=== PATIENT | female | born 1980 | race Caucasian/White ===

== ENCOUNTER 2020-07-03 09:11 | Emergency (ER) | payer OTHER ==
--- OUTSIDE RECORDS SUMMARY | 2020-07-03 09:14 | XMS REPORT | Continuity of Care Document ---
:[address] [facility] t Address [address] [place] [address] Care Team Providers Name Role Phone Unavailable Unavailable Unavailable Payers Payer Name Policy Type Policy Number Effective Date Expiration Date S ource Problems This patient has no known problems. Allergies, Adverse Reactions, Alerts Allergy Allergy Status Severity Reaction(s) Onset Inactive Treating Comm ents Source Name Type Date Date Clinician Penicill DA Active [place] 2018- [facility] ins 12-22 Clear 00:00: Chanel 00 [facility] Sulfa DA Active [place] 2018-0 [facility] (Sulfona 12-22 Clear mide 00:00: Chanel Antibiot 00 [facility] estradio DA Active [place] 2018- [facility] l 12-22 Clear 00:00: Chanel 00 [facility] cephalex DA Active U 2018-0 [facility] in 12-22 Clear 00:00: Chanel 00 [facility] ciproflo DA Active [place] 2018- [facility] xacin - Clear 00:00: Chanel 00 [facility] ciproflo DA Active U 2009-0 [facility] x[facility] [place] Penicill DA Active U 2009-0 [facility] [place] ciproflo DA Active U 2009-0 [facility] xacin [facility] [place] Medications This patient has no known medications. Procedures This patient has no known procedures. Results Test Description Test Time Test Comments Results Result Comments Source AG HEPATITIS B SURFACE 2019-01-01 12:41:00 Test Item Value Reference Range Interpretation Comme nts AG HEPATITIS B SURFACE (test code = HBSAG) NON REACTIVE INDEX NonRe active IS CONSENT FORM SIGNED FOR HIV TESTING? LUIS HEPATITIS [id number] 12:41:00 Test Item Value Reference Range Interpretation Comments AB HEPATITIS C (test code NON REACTIVE INDEX NON REACT. = HCVAB) IS CONSENT FORM SIGNED FOR HIV TESTING? YRAPID PLASMA [id number] 12:41:00 Test Item Value Reference Range Interpretation Comments RAPID PLASMA REAGIN (test code = NON-REACTIVE NON-REACT RPR) IS CONSENT FORM SIGNED FOR HIV TESTING? YAG HEPATITIS B [id number] 12:41:00 Test Item Value Reference Range Interpretation Comments AG HEPATITIS B SURFACE NON REACTIVE INDEX NonReactive (test code = HBSAG) IS CONSENT FORM SIGNED FOR HIV TESTING? LUIS HEPATITIS C [id number] 12:41:00 Test Item Value Reference Range Interpretation Comments AB HEPATITIS C (test code NON REACTIVE INDEX NON REACT. = HCVAB) IS CONSENT FORM SIGNED FOR HIV TESTING? MORIAHB [id number] 12:41:00 Test Item Value Reference Range Interpretation Comments AB TREPONEMA (test code = TEST NOT PERFORMED NONREACTIVE SEE RPR TREPAB) IS CONSENT FORM SIGNED FOR HIV TESTING? YCBC W/AUTO [id number] 14:05:00 Test Item Value Reference Range Interpretation Comments WHITE BLOOD CELL (test code = WBC) 19.9 K/mm3 6.6-12.1 H RED BLOOD CELL (test code = RBC) 4.11 M/mm3 3.45-5.01 N HEMOGLOBIN (test code = HGB) 11.9 g/dL 10.7-13.9 N HEMATOCRIT (test code = HCT) 36.9 % 32.1-42.1 N MEAN CELL VOLUME (test code = MCV) 90 fL 84.1-94.8 N MEAN CELL HGB (test code = MCH) 29.0 pg 27-35 N MEAN CELL HGB CONCETRATION (test 32.2 gm/dL 32.2-34.1 N code = MCHC) RED CELL DISTRIBUTION WIDTH (test 13.9 % 12.4-16.5 N code = RDW) PLATELET COUNT (test code = PLT) 225 K/mm3 133-385 N IMMATURE PLATELET FRACTION (test 0.0 % 0.0-10.8 N code = IPF) MEAN PLATELET VOLUME (test code = 12.3 fl 9.1-12.7 N MPV) NEUTROPHIL % (test code = NT%) 72.8 % 56.5-79.4 N LYMPHOCYTE % (test code = LY%) 19.4 % 14.3-34.3 N MONOCYTE % (test code = MO%) 6.3 % 5.1-10.4 N EOSINOPHIL % (test code = EO%) 0.8 % 0.1-3.0 N BASOPHIL % (test code = BA%) 0.2 % 0.1-1.0 N NEUTROPHIL # (test code = NT#) 14.5 K/mm3 LYMPHOCYTE # (test code = LY#) 3.9 K/mm3 MONOCYTE # (test code = MO#) 1.3 K/mm3 EOSINOPHIL # (test code = EO#) 0.16 K/mm3 BASOPHIL # (test code = BA#) 0.0 K/mm3 RBC MORPHOLOGY REQUIRED (test code NORMAL NORMAL = RBCM) PLATELET MORPHOLOGY REQUIRED (test NORMAL NORMAL code = PLTMR) RAPID PLASMA [id number] 12:15:00 Test Item Value Reference Range Interpretation Comments RAPID PLASMA REAGIN (test code = NON-REACTIVE NON-REACT RPR) IS CONSENT FORM SIGNED FOR HIV TESTING? YAG HEPATITIS B [id number] 12:15:00 Test Item Value Reference Range Interpretation Comments AG HEPATITIS B SURFACE NON REACTIVE INDEX NonReactive (test code = HBSAG) IS CONSENT FORM SIGNED FOR HIV TESTING? YAB HEPATITIS C [id number] 12:15:00 Test Item Value Reference Range Interpretation Comments AB HEPATITIS C (test code NON REACTIVE INDEX NON REACT. = HCVAB) IS CONSENT FORM SIGNED FOR HIV TESTING? YAB [id number] 12:15:00 Test Item Value Reference Range Interpretation Comments AB TREPONEMA (test code = TEST NOT PERFORMED NONREACTIVE SEE RPR TREPAB) IS CONSENT FORM SIGNED FOR HIV TESTING? YAB HIV 1 12:15:00 Test Item Value Reference Range Interpretation Comments AB HIV 1 2 (test code = NONREACTIVE [id number]) IS CONSENT FORM SIGNED FOR HIV TESTING? YRAPID PLASMA [id number] 10:43:00 Test Item Value Reference Range Interpretation Comments RAPID PLASMA REAGIN (test code = NON-REACTIVE NON-REACT RPR) IS CONSENT FORM SIGNED FOR HIV TESTING? KAREN HEPATITIS B [id number] 10:43:00 Test Item Value Reference Range Interpretation Comments AG HEPATITIS B SURFACE NON REACTIVE INDEX NonReactive (test code = HBSAG) IS CONSENT FORM SIGNED FOR HIV TESTING? LUIS HEPATITIS C [id number] 10:43:00 Test Item Value Reference Range Interpretation Comments AB HEPATITIS C (test code NON REACTIVE INDEX NON REACT. = HCVAB) SIGNAL TO CUTOFF (test <0.80 code = CUTOFF) IS CONSENT FORM SIGNED FOR HIV TESTING? MORIAHB [id number] 10:43:00 Test Item Value Reference Range Interpretation Comments AB TREPONEMA (test code = TEST NOT PERFORMED NONREACTIVE SEE RPR TREPAB) IS CONSENT FORM SIGNED FOR HIV TESTING? MORIAHB HIV 1 10:43:00 Test Item Value Reference Range Interpretation Comments AB HIV 1 2 (test code = [id number]) NONREACTIVE IS CONSENT FORM SIGNED FOR HIV TESTING? KAREN HEPATITIS B [id number] 09:55:00 Test Item Value Reference Range Interpretation Comments AG HEPATITIS B SURFACE NON REACTIVE INDEX NonReactive (test code = HBSAG) IS CONSENT FORM SIGNED FOR HIV TESTING? MORIAHB HEPATITIS [id number] 09:55:00 Test Item Value Reference Range Interpretation Comments AB HEPATITIS C (test code NON REACTIVE INDEX NON REACT. = HCVAB) IS CONSENT FORM SIGNED FOR HIV TESTING? MORIAHB HIV 1 09:55:00 Test Item Value Reference Range Interpretation Comments AB HIV 1 2 (test code = [id number]) INDEX NONREACTIVE IS CONSENT FORM SIGNED FOR HIV TESTING? YRAPID PLASMA [id number] 04:46:00 Test Item Value Reference Range Interpretation Comments RAPID PLASMA REAGIN (test code = NON-REACTIVE NON-REACT RPR) IS CONSENT FORM SIGNED FOR HIV TESTING? KAREN HEPATITIS B [id number] 04:46:00 Test Item Value Reference Range Interpretation Comments AG HEPATITIS B SURFACE NON REACTIVE INDEX NonReactive (test code = HBSAG) IS CONSENT FORM SIGNED FOR HIV TESTING? LUIS HEPATITIS C [id number] 04:46:00 Test Item Value Reference Range Interpretation Comments AB HEPATITIS C (test code = HCVAB) NONREACTIVE SIGNAL TO CUTOFF (test code = CUTOFF) <0.80 IS CONSENT FORM SIGNED FOR HIV TESTING? YAB [id number] 04:46:00 Test Item Value Reference Range Interpretation Comments AB TREPONEMA (test code = TEST NOT PERFORMED NONREACTIVE SEE RPR TREPAB) IS CONSENT FORM SIGNED FOR HIV TESTING? YAB HIV 1 04:46:00 Test Item Value Reference Range Interpretation Comments AB HIV 1 2 (test code = [id number]) NONREACTIVE IS CONSENT FORM SIGNED FOR HIV TESTING? YAG HEPATITIS B [id number] 03:37:00 Test Item Value Reference Range Interpretation Comments AG HEPATITIS B SURFACE NON REACTIVE INDEX NonReactive (test code = HBSAG) IS CONSENT FORM SIGNED FOR HIV TESTING? YAB HEPATITIS [id number] 03:37:00 Test Item Value Reference Range Interpretation Comments AB HEPATITIS C (test code = HCVAB) INDEX NON REACT. IS CONSENT FORM SIGNED FOR HIV TESTING? YAB HIV 1 03:37:00 Test Item Value Reference Range Interpretation Comments AB HIV 1 2 (test code = [id number]) INDEX NONREACTIVE IS CONSENT FORM SIGNED FOR HIV TESTING? YRAPID PLASMA [id number] 23:35:00 Test Item Value Reference Range Interpretation Comments RAPID PLASMA REAGIN (test code = NON-REACTIVE NON-REACT RPR) IS CONSENT FORM SIGNED FOR HIV TESTING? YAG HEPATITIS B [id number] 23:35:00 Test Item Value Reference Range Interpretation Comments AG HEPATITIS B SURFACE (test code = NONREACTIVE HBSAG) IS CONSENT FORM SIGNED FOR HIV TESTING? YAB HEPATITIS C [id number] 23:35:00 Test Item Value Reference Range Interpretation Comments AB HEPATITIS C (test code = HCVAB) NONREACTIVE SIGNAL TO CUTOFF (test code = CUTOFF) <0.80 IS CONSENT FORM SIGNED FOR HIV TESTING? YAB [id number] 23:35:00 Test Item Value Reference Range Interpretation Comments AB TREPONEMA (test code = TEST NOT PERFORMED NONREACTIVE SEE RPR TREPAB) IS CONSENT FORM SIGNED FOR HIV TESTING? YAB HIV 1 23:35:00 Test Item Value Reference Range Interpretation Comments AB HIV 1 2 (test code = [id number]) NONREACTIVE IS CONSENT FORM SIGNED FOR HIV TESTING? YRAPID PLASMA [id number] 23:08:00 Test Item Value Reference Range Interpretation Comments RAPID PLASMA REAGIN (test code = RPR) NON-REACT IS CONSENT FORM SIGNED FOR HIV TESTING? YAG HEPATITIS B [id number] 23:08:00 Test Item Value Reference Range Interpretation Comments AG HEPATITIS B SURFACE (test code = NONREACTIVE HBSAG) IS CONSENT FORM SIGNED FOR HIV TESTING? YAB HEPATITIS C [id number] 23:08:00 Test Item Value Reference Range Interpretation Comments AB HEPATITIS C (test code = HCVAB) NONREACTIVE SIGNAL TO CUTOFF (test code = CUTOFF) <0.80 IS CONSENT FORM SIGNED FOR HIV TESTING? YAB [id number] 23:08:00 Test Item Value Reference Range Interpretation Comments AB TREPONEMA (test code = TEST NOT PERFORMED NONREACTIVE SEE RPR TREPAB) IS CONSENT FORM SIGNED FOR HIV TESTING? YAB HIV 1 23:08:00 Test Item Value Reference Range Interpretation Comments AB HIV 1 2 (test code = [id number]) NONREACTIVE IS CONSENT FORM SIGNED FOR HIV TESTING? YCBC W/AUTO [id number] 18:39:00 Test Item Value Reference Range Interpretation Comments WHITE BLOOD CELL (test code = WBC) 16.1 K/mm3 6.6-12.1 H RED BLOOD CELL (test code = RBC) 4.18 M/mm3 3.45-5.01 N HEMOGLOBIN (test code = HGB) 12.1 g/dL 10.7-13.9 N HEMATOCRIT (test code = HCT) 37.2 % 32.1-42.1 N MEAN CELL VOLUME (test code = MCV) 89 fL 84.1-94.8 N MEAN CELL HGB (test code = MCH) 28.9 pg 27-35 N MEAN CELL HGB CONCETRATION (test 32.5 gm/dL 32.2-34.1 N code = MCHC) RED CELL DISTRIBUTION WIDTH (test 13.6 % 12.4-16.5 N code = RDW) PLATELET COUNT (test code = PLT) 236 K/mm3 133-385 N IMMATURE PLATELET FRACTION (test 0.0 % 0.0-10.8 N code = IPF) MEAN PLATELET VOLUME (test code = 12.9 fl 9.1-12.7 H MPV) NEUTROPHIL % (test code = NT%) 67.0 % 56.5-79.4 N LYMPHOCYTE % (test code = LY%) 24.2 % 14.3-34.3 N MONOCYTE % (test code = MO%) 6.7 % 5.1-10.4 N EOSINOPHIL % (test code = EO%) 1.4 % 0.1-3.0 N BASOPHIL % (test code = BA%) 0.2 % 0.1-1.0 N NEUTROPHIL # (test code = NT#) 10.8 K/mm3 LYMPHOCYTE # (test code = LY#) 3.9 K/mm3 MONOCYTE # (test code = MO#) 1.1 K/mm3 EOSINOPHIL # (test code = EO#) 0.22 K/mm3 BASOPHIL # (test code = BA#) 0.0 K/mm3 RBC MORPHOLOGY REQUIRED (test code NORMAL NORMAL = RBCM) PLATELET MORPHOLOGY REQUIRED (test NORMAL NORMAL code = PLTMR) URINALYSIS [id number] 18:36:00 Test Item Value Reference Range Interpretation Comments UA COLOR (test code = COLU) YELLOW YELLOW UA APPEARANCE (test code = CLEAR CLEAR APPU) UA GLUCOSE DIPSTICK (test code NEGATIVE NEG = DGLUU) UA BILIRUBIN DIPSTICK (test NEGATIVE NEG code = BILU) UA KETONE DIPSTICK (test code TRACE NEG A = KETU) UA SPECIFIC GRAVITY (test code 1.015 1.001-1.035 N = SGU) UA BLOOD DIPSTICK (test code = NEG NEG KATHLEEN) UA PH DIPSTICK (test code = 5.0 5-9 RIMMA) UA PROTEIN DIPSTICK (test code NEGATIVE NEG = PROU) UA UROBILINIOGEN DIPSTICK NEGATIVE mg/dL NEG (test code = URO) UA NITRITE DIPSTICK (test code NEG NEG = ALESSANDRA) UA LEUKOCYTE ESTERASE DIPSTICK NEG NEG (test code = LEUU) UA WBC (test code = WBCU) 0-2 #/hpf NONE SEEN UA RBC (test code = RBCU) 0-2 #/hpf NONE SEEN UA EPITHELIAL CELLS (test code RARE #/HPF RARE-FEW = EPIU) UA BACTERIA (test code = BACU) RARE /HPF RARE-FEW UA HYALINE CAST (test code = 0-2 #/hpf A HYALU) UA MUCUS (test code = MUCU) 1+ NONE SEEN URINE SAMPLE: CLEAN CATCH
--- NOTE | 2020-07-03 09:28 | ER ---
Nurse's Notes [facility] Name: Meron Thompson Age: 40 yrs Sex: Female : 1980 Arrival Date: 07/03/2020 Time: 09:15 Bed 14 Private MD: Diagnosis: Urticaria Presentation: 07/03 09:21 Chief complaint: Itchy rash all over body since yesterday. Coronavirus screen: At this hb time, the client does not indicate any symptoms associated with coronavirus-19. Ebola Screen: No symptoms or risks identified at this time. Onset: The symptoms/episode began/occurred yesterday. Anaphylaxis evaluation, the patient reports or I have noted the following symptoms which indicate a significant risk of anaphylaxis:. Initial Sepsis Screen: Does the patient meet any 2 criteria? No. Patient's initial sepsis screen is negative. Does the patient have a suspected source of infection? No. Patient's initial sepsis screen is negative. Risk Assessment: Do you want to hurt yourself or someone else? Patient reports no desire to harm self or others. Onset of symptoms was July 02, 2020. 09:21 Method Of Arrival: Ambulatory 09:21 Acuity: TOAN 4 Triage Assessment: 09:23 General: Appears in no apparent distress. Behavior is calm, cooperative. Pain: Denies hb pain. EENT: No signs and/or symptoms were reported regarding the EENT system. Neuro: Level of Consciousness is awake, alert, obeys commands, Oriented to person, place, time, situation. Cardiovascular: Patient's skin is warm and dry. Respiratory: Respiratory effort is even, unlabored, Respiratory pattern is regular, symmetrical. GI: No signs and/or symptoms were reported involving the gastrointestinal system. : No signs and/or symptoms were reported regarding the genitourinary system. Derm: Rash noted that is urticaria. Musculoskeletal: No signs and/or symptoms reported regarding the musculoskeletal system. Historical: - Allergies: 09:23 Sulfa (Sulfonamide Antibiotics); hb 09:23 PENICILLINS; hb 09:23 Cipro; hb 09:23 Keflex; hb - Home Meds: 09:23 None [Active]; hb - PMHx: 09:23 None; hb - Immunization history:: Adult Immunizations up to date. - Social history:: Smoking status: Patient denies any tobacco usage or history of. Screenin:24 Abuse screen: Denies threats or abuse. Denies injuries from another. Nutritional hb screening: No deficits noted. Tuberculosis screening: No symptoms or risk factors identified. Fall Risk None identified. Assessment: 09:24 General: see triage. hb Vital Signs: 09:21 BP 136 / 86; Pulse 76; Resp 16; Temp 97.7; Pulse Ox 100% on R/A; Pain 0/10; hb ED Course: 09:15 Patient arrived in ED. mr 09:15 [facility] kb 09:16 Corey Acevedo MD is Attending Physician. kb 09:21 Marla Canchola, SHANNA is Primary Nurse. hb 09:22 Triage completed. hb 09:24 Arm band placed on. hb 09:24 Patient has correct armband on for positive identification. Bed in low position. Call hb light in reach. 09:34 No provider procedures requiring assistance completed. Patient did not have IV access hb during this emergency room visit. Administered Medications: 09:33 Drug: Pepcid 20 mg Route: PO; hb 09:34 Follow up: Response: Medication administered at discharge. hb 09:33 Drug: predniSONE 40 mg Route: PO; hb 09:34 Follow up: Response: Medication administered at discharge. hb 09:33 Drug: Benadryl 25 mg Route: PO; hb 09:34 Follow up: Response: Medication administered at discharge. hb 09:33 CANCELLED (Duplicate Order): Benadryl 25 mg PO once hb Outcome: 09:27 Discharge ordered by . kb 09:34 Patient left the ED. hb 09:34 Discharged to home ambulatory. hb 09:34 Condition: stable 09:34 Discharge instructions given to patient, Instructed on discharge instructions, follow up and referral plans. medication usage, Demonstrated understanding of instructions, follow-up care, medications, Prescriptions given X 2. Signatures: Rosalind Emanuel FNP-C FNP-Ckb Kedar Macy mr Marla Canchola, RN RN hb
--- NOTE | 2020-07-03 09:28 | EDPHYS ---
Physician Documentation [facility] Name: Meron Thompson Age: 40 yrs Sex: Female : 1980 Arrival Date: 07/03/2020 Time: 09:15 Bed 14 Private MD: Corey Machado HPI: 07/03 09:22 This 40 yrs old Female presents to ER via Unassigned with complaints of kb Allergic Reaction. 09:22 The patient presents with itching, rash. Onset: The symptoms/episode began/occurred kb last night. Associated signs and symptoms: Pertinent positives: rash. Possible causes: The patient has no known obvious cause for the symptoms. At home the patient or guardian has treated the symptoms with nothing. Severity of symptoms: At their worst the symptoms were moderate in the emergency department the symptoms are unchanged. The patient has experienced similar episodes in the past. The patient has not recently seen a physician. Historical: - Allergies: 09:23 Sulfa (Sulfonamide Antibiotics); hb 09:23 PENICILLINS; hb 09:23 Cipro; hb 09:23 Keflex; hb - Home Meds: 09:23 None [Active]; hb - PMHx: 09:23 None; hb - Immunization history:: Adult Immunizations up to date. - Social history:: Smoking status: Patient denies any tobacco usage or history of. ROS: 09:22 Constitutional: Negative for fever, chills, and weight loss, Cardiovascular: Negative kb for chest pain, palpitations, and edema, Respiratory: Negative for shortness of breath, cough, wheezing, and pleuritic chest pain, Abdomen/GI: Negative for abdominal pain, nausea, vomiting, diarrhea, and constipation, Back: Negative for injury and pain, MS/Extremity: Negative for injury and deformity, Neuro: Negative for headache, weakness, numbness, tingling, and seizure. 09:22 Skin: Positive for rash. Exam: 09:22 Constitutional: This is a well developed, well nourished patient who is awake, alert, kb and in no acute distress. Head/Face: Normocephalic, atraumatic. Chest/axilla: Normal chest wall appearance and motion. Nontender with no deformity. No lesions are appreciated. Cardiovascular: Regular rate and rhythm with a normal S1 and S2. No gallops, murmurs, or rubs. Normal PMI, no JVD. No pulse deficits. Respiratory: Lungs have equal breath sounds bilaterally, clear to auscultation and percussion. No rales, rhonchi or wheezes noted. No increased work of breathing, no retractions or nasal flaring. Abdomen/GI: Soft, non-tender, with normal bowel sounds. No distension or tympany. No guarding or rebound. No evidence of tenderness throughout. MS/ Extremity: Pulses equal, no cyanosis. Neurovascular intact. Full, normal range of motion. Neuro: Awake and alert, GCS 15, oriented to person, place, time, and situation. Cranial nerves II-XII grossly intact. Motor strength 5/5 in all extremities. Sensory grossly intact. Cerebellar exam normal. Normal gait. 09:22 Skin: rash a moderate rash is noted, consistent with urticaria. Vital Signs: 09:21 BP 136 / 86; Pulse 76; Resp 16; Temp 97.7; Pulse Ox 100% on R/A; Pain 0/10; hb MDM: 09:18 Patient medically screened. kb 09:27 Data reviewed: vital signs, nurses notes. Data interpreted: Pulse oximetry: on room air kb is 100 %. Interpretation: normal. Counseling: I had a detailed discussion with the patient and/or guardian regarding: the historical points, exam findings, and any diagnostic results supporting the discharge/admit diagnosis, the need for outpatient follow up, a family practitioner, to return to the emergency department if symptoms worsen or persist or if there are any questions or concerns that arise at home. Administered Medications: 09:33 Drug: Pepcid 20 mg Route: PO; hb 09:34 Follow up: Response: Medication administered at discharge. hb 09:33 Drug: predniSONE 40 mg Route: PO; hb 09:34 Follow up: Response: Medication administered at discharge. hb 09:33 Drug: Benadryl 25 mg Route: PO; hb 09:34 Follow up: Response: Medication administered at discharge. hb 09:33 CANCELLED (Duplicate Order): Benadryl 25 mg PO once hb Disposition: 07/03/20 09:27 Discharged to Home. Impression: Urticaria. - Condition is Stable. - Discharge Instructions: Allergies, [id number]. - Prescriptions for Pepcid 20 mg Oral Tablet - take 1 tablet by ORAL route every 12 hours for 5 days; 10 tablet. Prednisone 20 mg Oral Tablet - take 1 tablet by ORAL route once daily for 5 days; 5 tablet. - Medication Reconciliation Form, Thank You Letter, Antibiotic Education, Prescription Opioid Use form. - Follow up: Private Physician; When: 2 - 3 days; Reason: Recheck today's complaints, Continuance of care, Re-evaluation by your physician. Follow up: Emergency Department; When: As needed; Reason: Worsening of condition. Addendum: 07/05/2020 08:29 Co-signature as Attending Physician, Corey Acevedo MD I agree with the assessment and c jones plan of care. Signatures: Rosalind Emanuel, PSYCHOLOGIST MILITARY PERSONNEL-C PSYCHOLOGIST MILITARY PERSONNEL-Ckb Corey Acevedo MD MD cha Baxter, Heather, RN RN hb Corrections: (The following items were deleted from the chart) 07/03 09:33 09:33 Benadryl 25 mg PO once ordered. hb hb 09:34 09:27 07/03/2020 09:27 Discharged to Home. Impression: Urticaria. Condition is Stable. hb Forms are Medication Reconciliation Form, Thank You Letter, Antibiotic Education, Prescription Opioid Use. Follow up: Private Physician; When: 2 - 3 days; Reason: Recheck today's complaints, Continuance of care, Re-evaluation by your physician. Follow up: Emergency Department; When: As needed; Reason: Worsening of condition. kb
[2020-07-03 09:39] VITALS: BP 136/86; TEMP 97.7; O2SAT 100
[2020-07-03] MEDS ORDERED: FAMOTIDINE 20 MG TAB ONE (09:40)
[2020-07-03] MEDS ORDERED: predniSONE 20 MG TAB ONE (09:40)
[2020-07-03] MEDS ORDERED: DIPHENHYDRAMINE 25 MG TAB/CAP ONE (09:42)
== END 2020-07-03 09:34 | disposition home or self-care (01) ==
LOC: ER 09:11
DX: L50.9 Urticaria, unspecified (principal); Z88.0 Allergy status to penicillin; Z88.1 Allergy status to other antibiotic agents; Z88.2 Allergy status to sulfonamides
CPT/HCPCS: 99283; J7512